=== PATIENT | female | born 1940 | race Caucasian/White ===

== ENCOUNTER 2019-07-09 17:22 | Inpatient (IN) | payer OTHER ==
[~2019-07-09] VITALS: Ht 165.1 cm; Wt 73.0 kg
[2019-07-09] MEDS ORDERED: ACETAMINOPHEN 500 MG TAB PO ONE (17:45)
[2019-07-09 17:59] LABS: Hematocrit 28.8 % (36.0-46.0); Hemoglobin 9.7 g/dL (12.2-16.2); Mean Corpuscular Hemoglobin 30.9 pg (28.0-32.0); Mean Corpuscular Hgb Conc. 33.8 g/dL (32.0-36.0); Mean Corpuscular Volume 91.3 fL (80.0-100.0); Platelet Count (auto) 275 10^3/uL (140-450); Red Blood Cells 3.16 10^6/uL (4.0-5.20); Red Cell Distribution Width 15.9 % (11.8-14.3); White Blood Cell 26.1 10^3/uL (4.4-10.8)
[2019-07-09 18:13] LABS: Basophils % (manual) 0 (0.0-2.0); Blast Cells 0; Eosinophils % (manual) 0 (0-7); Metamyelocytes % 0; Myelocytes % 0; Promyelocytes % 0; Reactive Lymphocytes 0
[2019-07-09] MEDS ORDERED: ONDANSETRON HCL 4 MG/2 ML VIAL IV ONE (18:15)
[2019-07-09 18:16] LABS: Alanine Aminotransferase 23 U/L (13-56); Albumin 2.4 g/dL (3.4-5.0); Anion Gap 7 (5-15); Aspartate Aminotransferase 12 U/L (15-37); BUN/Creatinine Ratio 13.2; Blood Urea Nitrogen 16 mg/dL (7-18); Calcium 8.3 mg/dL (8.5-10.1); Carbon Dioxide 23 mmol/L (21-32); Chloride 98 mmol/L (98-107); GFR African American 55 mL/min; GFR Non-African American 46 mL/min; Glucose 122 mg/dL (74-106); Lipase 44 U/L (73-393); Potassium 4.3 mmol/L (3.5-5.1); Sodium 128 mmol/L (136-145)
[2019-07-09 18:21] LABS: Alkaline Phosphatase 113 U/L (45-117); Bilirubin, Total 0.7 mg/dL (0.2-1.0); Total Protein 5.5 g/dL (6.4-8.2)
[2019-07-09] MEDS ORDERED: SODIUM CHLORIDE 0.9% 1,000 ML IV ONE ×2 (19:15→20:15)
[2019-07-09 19:54] LABS: Urine Bacteria MANY /hpf (None Seen); Urine Blood 2+ /uL (Negative); Urine Hyaline Cast FEW /lpf (0 - 2); Urine Mucus FEW (None Seen); Urine Specific Gravity 1.019 (1.001-1.035); Urine WBC 86 /hpf (0 - 5)
[2019-07-09 20:29] LABS: Band Neutrophils % (manual) 9; Lymphocytes % (manual) 3 (10.0-50.0); Monocytes % (manual) 3 (0-12)
[2019-07-09] MEDS ORDERED: MORPHINE SULF INJ 2 MG/ML SYRINGE 1ML IV PRN (20:30)
[2019-07-09] MEDS ORDERED: ONDANSETRON HCL 4 MG/2 ML VIAL IV PRN (20:30)
[2019-07-09] MEDS ORDERED: ALBUMIN 5% 250 ML IV ONE (21:45)
[2019-07-09] MEDS ORDERED: metroNIDAZOLE 500 MG TAB PO SCH (22:00)
[2019-07-09] MEDS ORDERED: CIPROFLOXACIN 400MG/200ML 200 ML IV SCH (22:00)
[2019-07-09] MEDS ORDERED: NOREPINEPHRINE 8 MG/250ML KIT 250 ML IV ONE (23:19)
[2019-07-09] MEDS: NOREPINEPHRINE 8 MG/250ML KIT 250 ML IV SCH (23:27)
[2019-07-10] VITALS (63 sets, daily range): BP systolic 85–146; BP diastolic 22–90
[2019-07-10] MEDS ORDERED: PRO10T PO (02:13)
[2019-07-10] MEDS ORDERED: FOLI1TAB6 PO (02:22)
[2019-07-10] MEDS ORDERED: ONDA-143 PO (02:22)
[2019-07-10] MEDS ORDERED: RIVA20TA PO (02:22)
[2019-07-10] MEDS ORDERED: DEXA4TAB PO (02:22)
[2019-07-10] MEDS ORDERED: HCTZ25T GT (02:22)
[2019-07-10] MEDS ORDERED: DOCU-80 PO (02:22)
[2019-07-10] MEDS ORDERED: POTA10TA51 PO (02:22)
[2019-07-10] MEDS ORDERED: DIPH1TAB PO (02:22)
[2019-07-10] MEDS ORDERED: SENN1TAB14 PO (02:29)
[2019-07-10] MEDS ORDERED: HYDR-4902 PO (02:29)
[2019-07-10] MEDS ORDERED: FURO20TA3 PO (02:29)
[2019-07-10] MEDS ORDERED: LORA0.5T12 PO (02:29)
[2019-07-10] MEDS ORDERED: LEVO25TA6 PO (02:29)
[2019-07-10] MEDS ORDERED: METO25TA93 PO (02:29)
[2019-07-10 04:16] LABS: Hematocrit 26.7 % (36.0-46.0); Hemoglobin 8.9 g/dL (12.2-16.2); Mean Corpuscular Hemoglobin 30.6 pg (28.0-32.0); Mean Corpuscular Hgb Conc. 33.4 g/dL (32.0-36.0); Mean Corpuscular Volume 91.5 fL (80.0-100.0); Platelet Count (auto) 291 10^3/uL (140-450); Red Blood Cells 2.92 10^6/uL (4.0-5.20)
[2019-07-10 04:30] LABS: Albumin 2.2 g/dL (3.4-5.0); BUN/Creatinine Ratio 13.9; Potassium 3.7 mmol/L (3.5-5.1)
[2019-07-10 04:47] LABS: White Blood Cell 44.8 10^3/uL (4.4-10.8)
[2019-07-10 04:48] LABS: Basophils % (manual) 0 (0.0-2.0); Blast Cells 0; Eosinophils % (manual) 0 (0-7); Myelocytes % 0; Promyelocytes % 0; Reactive Lymphocytes 0
[2019-07-10 06:39] LABS: Lymphocytes % (manual) 1 (10.0-50.0); Metamyelocytes % 1
[2019-07-10 06:40] LABS: Band Neutrophils % (manual) 4; Monocytes % (manual) 1 (0-12)
[2019-07-10] MEDS ORDERED: SODIUM CHLORIDE 0.9% 1,000 ML IV ONE (08:15)
[2019-07-10] MEDS ORDERED: SODIUM CHLORIDE 0.9% 1,000 ML IV SCH ×3 (08:15→10:00)
[2019-07-10] MEDS ORDERED: VANCOMYCIN PER PHARMACY 0 MG IV SCH (08:15)
[2019-07-10] MEDS ORDERED: PIPERACILLIN-TAZOB 3.375GM 100 ML IV ONE (08:45)
[2019-07-10] MEDS ORDERED: metroNIDAZOLE 500MG/100ML 100 ML IV ONE (08:45)
[2019-07-10] MEDS ORDERED: VANCOMYCIN 1GM/250ML 250 ML IV ONE (10:00)
[2019-07-10 10:11] LABS: INR 1.51 (0.9-1.15)
[2019-07-10] MEDS: PIPERACILLIN-TAZOB 3.375GM 100 ML IV SCH ×2 (12:30→18:47)
[2019-07-10] MEDS ORDERED: metroNIDAZOLE 500MG/100ML 100 ML IV SCH (15:00)
[2019-07-10] MEDS ORDERED: ACETAMINOPHEN 325 MG TAB PO PRN (16:00)
[2019-07-10] MEDS: PROMETHAZINE HCL 25 MG/ML 1ML IV PRN (17:37)
[2019-07-10] MEDS: ACETAMINOPHEN 650 MG RECT SUPP PR PRN ×2 (19:06→23:30)
[2019-07-10] MEDS: metroNIDAZOLE 500 MG TAB PO SCH (22:14)
[2019-07-11] VITALS (89 sets, daily range): BP systolic 78–135; BP diastolic 32–98
[2019-07-11] MEDS: SODIUM CHLORIDE 0.9% 1,000 ML IV SCH ×4 (00:08→20:05)
[2019-07-11] MEDS: PIPERACILLIN-TAZOB 3.375GM 100 ML IV SCH ×4 (00:08→18:16)
[2019-07-11 04:03] LABS: Basophils # (auto) 0.2 10 ^3/uL (0-0.2); Basophils % (auto) 0.6 % (0.0-2.0); Eosinophils # (auto) 0 10 ^3/uL (0-0.8); Hemoglobin 8.9 g/dL (12.2-16.2); Lymphocytes # (auto) 0.5 10 ^3/uL (0.4-5.4); Lymphocytes % (auto) 1.2 % (10.0-50.0); Platelet Count (auto) 298 10^3/uL (140-450); Red Cell Distribution Width 16.2 % (11.8-14.3)
[2019-07-11 04:07] LABS: Hematocrit 27.1 % (36.0-46.0); Mean Corpuscular Hemoglobin 30.5 pg (28.0-32.0); Mean Corpuscular Hgb Conc. 32.8 g/dL (32.0-36.0); Monocytes # (auto) 1.2 10 ^3/uL (0-1.3); Monocytes % (auto) 2.7 % (0.0-12.0); Neutrophils # (auto) 41.5 10 ^3/uL (1.6-8.6); Neutrophils % (auto) 95.5 % (37.0-80.0); Red Blood Cells 2.92 10^6/uL (4.0-5.20)
[2019-07-11 04:17] LABS: Potassium 3.4 mmol/L (3.5-5.1)
[2019-07-11 04:18] LABS: White Blood Cell 43.4 10^3/uL (4.4-10.8)
[2019-07-11 04:22] LABS: BUN/Creatinine Ratio 9.1; Calcium 7.4 mg/dL (8.5-10.1)
[2019-07-11] MEDS: metroNIDAZOLE 500 MG TAB PO SCH ×3 (06:26→22:12)
[2019-07-11] MEDS: POTASSIUM CHL 20MEQ/100ML 100 ML IV SCH ×2 (09:07→11:18)
[2019-07-11] MEDS: VANCOMYCIN HCL 125MG/5ML ORAL SOL GT SCH ×3 (12:17→22:12)
[2019-07-11] MEDS: PROMETHAZINE HCL 25 MG/ML 1ML IV PRN ×2 (14:40→22:14)
[2019-07-11] MEDS ORDERED: MORPHINE SULF INJ 2 MG/ML SYRINGE 1ML IV ONE (15:15)
[2019-07-11] MEDS: VANCOMYCIN 750mg/250ml 250 ML IV SCH ×2 (16:16→16:40)
[2019-07-11] MEDS: NOREPINEPHRINE 8 MG/250ML KIT 250 ML IV SCH (17:25)
[2019-07-11] MEDS: ALBUMIN 25% 100 ML IV SCH ×2 (20:19→22:14)
[2019-07-11 20:35] LABS: INR 1.62 (0.9-1.15); Partial Thromboplastin Time 39.3 sec (23.64-32.05)
[2019-07-11] MEDS ORDERED: LORazepam 0.5 MG TAB ONE (21:44)
[2019-07-11] MEDS ORDERED: LORazepam 0.5 MG TAB PO PRN (21:45)
[2019-07-11] MEDS: ACETAMINOPHEN 650 MG RECT SUPP PR PRN (22:15)
[2019-07-12] VITALS (58 sets, daily range): BP systolic 47–123; BP diastolic 35–80
[2019-07-12] MEDS: PROMETHAZINE HCL 25 MG/ML 1ML IV PRN (03:12)
[2019-07-12 04:19] LABS: Basophils # (auto) 0.1 10 ^3/uL (0-0.2); Basophils % (auto) 0.3 % (0.0-2.0); Eosinophils # (auto) 0 10 ^3/uL (0-0.8); Hemoglobin 7.4 g/dL (12.2-16.2); Lymphocytes # (auto) 0.4 10 ^3/uL (0.4-5.4); Lymphocytes % (auto) 0.9 % (10.0-50.0); Mean Corpuscular Hemoglobin 30.8 pg (28.0-32.0); Mean Corpuscular Hgb Conc. 33.5 g/dL (32.0-36.0); Monocytes % (auto) 2.5 % (0.0-12.0); Neutrophils # (auto) 39.3 10 ^3/uL (1.6-8.6); Neutrophils % (auto) 96.3 % (37.0-80.0); Platelet Count (auto) 260 10^3/uL (140-450); Red Blood Cells 2.39 10^6/uL (4.0-5.20); Red Cell Distribution Width 16.1 % (11.8-14.3)
[2019-07-12 04:22] LABS: White Blood Cell 40.8 10^3/uL (4.4-10.8)
[2019-07-12 04:30] LABS: Potassium 3.5 mmol/L (3.5-5.1)
[2019-07-12] MEDS: SODIUM CHLORIDE 0.9% 1,000 ML IV SCH ×2 (04:32→09:48)
[2019-07-12 04:35] LABS: BUN/Creatinine Ratio 9.4; Calcium 7.3 mg/dL (8.5-10.1)
[2019-07-12] MEDS: PIPERACILLIN-TAZOB 3.375GM 100 ML IV SCH ×3 (06:00→11:56)
[2019-07-12] MEDS: metroNIDAZOLE 500 MG TAB PO SCH ×2 (06:00→13:51)
[2019-07-12] MEDS: VANCOMYCIN HCL 125MG/5ML ORAL SOL GT SCH ×2 (06:00→11:56)
[2019-07-12] MEDS ORDERED: AMIODARONE HCL (50 MG/ ML) 3 ML VIAL IV ONE (06:43)
[2019-07-12] MEDS ORDERED: AMIODARONE HCL 900 MG IV ONE (06:45)
[2019-07-12] MEDS ORDERED: AMIODARONE HCL 150 MG in D5W 5% 100 ML IV ONE ×2 (06:45→11:30)
[2019-07-12] MEDS ORDERED: AMIODARONE HCL 900 MG in DEXTROSE 500 ML IV SCH ×2 (06:46→12:46)
[2019-07-12] MEDS: NOREPINEPHRINE 8 MG/250ML KIT 250 ML IV SCH (07:00)
[2019-07-12] MEDS ORDERED: MIDODRINE HCL 10 MG TAB PO SCH (10:00)
[2019-07-12] MEDS ORDERED: LEVOTHYROXINE SODIUM 100 MCG/5 ML INJ IV SCH (10:00)
[2019-07-12] MEDS ORDERED: dilTIAZem 25 MG/5 ML VIAL IV ONE ×2 (10:11→10:15)
[2019-07-12] MEDS ORDERED: DIGOXIN (250MCG/ML) 2 ML AMPULE IV ONE (11:30)
== END 2019-07-12 14:55 | disposition short-term general hospital (02) | DRG 871 ==
LOC: EDBD 17:22 → ER 17:22 → OVERFLOW 17:23 → ICU WEST 23:22
PROVIDERS: ADMIT Internal Medicine; ATTEND Internal Medicine
DX: A41.9 Sepsis, unspecified organism (principal); R65.21 Severe sepsis with septic shock; A09 Infectious gastroenteritis and colitis, unspecified; E87.1 Hypo-osmolality and hyponatremia; N39.0 Urinary tract infection, site not specified; K80.00 Calculus of gallbladder with acute cholecystitis without obstruction; I95.0 Idiopathic hypotension; D64.9 Anemia, unspecified; E66.01 Morbid (severe) obesity due to excess calories; E78.5 Hyperlipidemia, unspecified; E03.9 Hypothyroidism, unspecified; E87.6 Hypokalemia; I10 Essential (primary) hypertension; I48.91 Unspecified atrial fibrillation; Z68.26 Body mass index [BMI] 26.0-26.9, adult; Z79.899 Other long term (current) drug therapy; Z87.891 Personal history of nicotine dependence
CPT/HCPCS: 36415; 71045; 74176; 76700; 78226; 80048; 80053; 81001; 82962; 83605; 83690; 83880; 84443; 84484; 85007; 85025; 85027; 85610; 85730; 86850; 86900; 86901; 87040; 87081; 87086; 87493; 93005; 93306; 93970; G0378; J2405; J2543; J3480; J3490; J7060; P9047